=== PATIENT | female | born 1985 | race Caucasian/White ===

== ENCOUNTER 2016-10-01 11:05 | Emergency (ER) | payer BC ==
[2016-10-01 11:09] VITALS: BP 114/78; PULSE 68; TEMP 98; BMI 23.1
--- NOTE | 2016-10-01 12:56 | PDOC ---
History of Present Illness - General Chief Complaint: Injury Stated Complaint: LACERATION Time Seen by Provider: 10/01/16 12:12 History Source: Patient Exam Limitations: No Limitations - History of Present Illness Initial Comments: 10/01/16 23:02 Chief complaint: Right thumb laceration History of present illness: Patient is a 31-year-old female with no significant medical history here today with a superficial laceration on her right distal palmar thumb after cutting it with a knife. Patient also has tiny laceration on tip of right thumb. Patient is right handed. Patient has full range of motion of the right dominant and denies any numbness of her right thumb. Occurred: reports: just prior to arrival Severity: reports: mild Pain Location: denies: upper extremity (rt. thumb ) Method of Injury: Yes: other (cut by knife) Modifying Factors: improves with: None Loss of Consciousness: no loss of consciousness Associated Symptoms (Fall): other (flap laceration superficial rt. thumb palmar aspect and tip of thumb) Past History - Past Medical History Allergies/Adverse Reactions: Allergies Allergy/AdvReac Type Severity Reaction Status Date / Time No Known Allergies Allergy Verified 10/01/16 11:09 Home Medications: Ambulatory Orders NK [No Known Home Medication] 10/01/16 Other medical history: denies - Psycho/Social/Smoking Cessation Hx Suicidal Ideation: No Smoking History: Never smoked Information on smoking cessation initiated: No Hx Alcohol Use: No Drug/Substance Use Hx: No Substance Use Type: None Review of Systems - Review of Systems Able to Perform ROS?: Yes Constitutional: No: Symptoms Reported HEENTM: No: Symptoms Reported Respiratory: No: Symptoms reported Cardiac (ROS): No: Symptoms Reported ABD/GI: No: Symptoms Reported : No: Symptoms Reported Musculoskeletal: No: Symptoms Reported Integumentary: Yes: Other (rt. thumb palmar aspect superficial laceration distal aspect flap like and superfical linear laceration vertical tip of rt. thumb ) Neurological: No: Symptoms reported *Physical Exam - Vital Signs Last Vital Signs Temp Pulse Resp BP Pulse Ox 98 F 68 17 114/78 100 10/01/16 11:06 10/01/16 11:06 10/01/16 11:06 10/01/16 11:06 10/01/16 11:06 - Physical Exam General Appearance: Yes: Appropriately Dressed Comments:: 10/01/16 12:53 radial pulse rt. 4 + Extremity: positive: Normal Capillary Refill, Normal Range of Motion (rt.thumb DIP and MCP jt ) Integumentary: positive: Other (superfical flap laceration distal palmar thumb and superfical linear laceration palmar tip of rt. thumb ) Neurologic: positive: Alert, Normal Response, Respond to painful stimul (rt. thumb, hand ), Responsive. negative: Numbness, Sensory Deficit Procedures - Consent Consent obtained: From Patient - Laceration/Wound Repair Right Distal Volar 1st digit Finger Wound Length: 2.6 to 5.0 cm Wound Explored: clean Wound's Depth, Shape: linear, flap Irrigated w/ Saline: Yes Betadine Prep: Yes Wound Repaired With: Dermabond (was able to dermabond flap is very superficial ) Sterile Dressing Applied: Yes (rt. thumb ) Medical Decision Making - Medical Decision Making 10/01/16 23:03 Patient is a 31-year-old female with no significant medical history here today with a superficial laceration on her right distal palmar thumb after cutting it with a knife. Patient also has tiny laceration on tip of right thumb. Patient is right handed. Patient has full range of motion of the right dominant and denies any numbness of her right thumb. Up to date With tetanus. Right thumb laceration flap-like superficial palmar distal aspect 10/01/16 23:04 Plan: Dermabond to right thumb superficial flap laceration Telfa and dry sterile dressing applied *DC/Admit/Observation/Transfer Diagnosis at time of Disposition: Laceration of thumb Qualifiers: Encounter type: initial encounter Laterality: right Qualified Code(s): S61.011A - Laceration without foreign body of right thumb without damage to nail , initial encounter - Discharge Dispostion Disposition: HOME Condition at time of disposition: Stable - Referrals Referrals: Rajeev Todd MD [Primary Care Provider] - - Patient Instructions Additional Instructions: YOU MAY WASH YOUR RIGHT HAND HOWEVER DO NOT RUB OFF ALLOW IT TO FALL OFF ON OWN THAN YOU MAY APPLY BACITRACIN OINTMENT TWICE DAILY COVER WITH BANDAGE DURING DAY AND LET AIR OFF RETURN TO EMERGENCY IF ANY REDNESS OR DISCHARGE FROM WOUND PATIENT VOICED UNDERSTANDING OF DISCHARGE INSTRUCTIONS AND ALL QUESTIONS WERE ANSWERED
== END 2016-10-01 13:25 | disposition home or self-care (01) ==
LOC: JERFT 11:05
PROC: 0HQFXZZ Repair Right Hand Skin, External Approach (ICD-10-PCS; principal; 2016-10-01)
DX: S61.011A Laceration without foreign body of right thumb without damage to nail, initial encounter (principal); W26.0XXA Contact with knife, initial encounter; Y93.G1 Activity, food preparation and clean up; Y92.098 Other place in other non-institutional residence as the place of occurrence of the external cause
CPT/HCPCS: 99281-25